=== PATIENT | female | born 1980 | race Caucasian/White ===

== ENCOUNTER 2024-05-12 18:45 | Emergency (ER) | payer OTHER, SELFPAY ==
[2024-05-12 18:53] VITALS: BP 150/98; PULSE 98; TEMP 36.9; O2SAT 100; BMI 26.6
--- NOTE | 2024-05-12 19:10 | ECG_ITS ---
The [facility] Test Date: 2024-05-12 Pat Name: ARACELY VELASQUEZ Department: Room: - Gender: Female Branch Operations Coordinator: : 1980 Requested By: [id number] Order Number: [id number] Reading MD: MELISA VILLALOBOS Measurements Intervals [place] Rate: 94 P: 61 PA: 158 QRS: 74 QRSD: 88 T: 60 QT: 338 QTc: 389 Interpretive Statements 1100 Sinus rhythm 9110 normal ECG Electronically Signed On 05-12-2024 20:47:33 EST by MELISA VILLALOBOS
--- NOTE | 2024-05-12 19:10 | XR_ITS ---
The [address] [address] Patient Name: ARACELY VELASQUEZ MRN: [id number] date: 1980 Sex: F Assigned Patient Location: ER Current Patient Location: ED.MAIN Accession/Order Number: [id number] Exam Date: 05/12/2024 19:23 Report Date: 05/12/2024 20:28 At the request of: SHRUTHI BENDER Procedure: XR chest 2V EXAM: XR chest 2V HISTORY: shortness of breath COMPARISON: None. TECHNIQUE: PA and lateral views of the chest FINDINGS: There is no focal airspace consolidation. The cardiomediastinal silhouette is not enlarged. No evidence of pleural effusion or pneumothorax are identified. No acute osseous abnormality. XR/XR chest 2V IMPRESSION: No acute cardiopulmonary process. Recommend follow up imaging if symptoms worsen or persist. Electronically authenticated by: RALPH UNLU Date: 05/12/2024 20:28
--- NOTE | 2024-05-12 19:54 | ED.GENADUL1 ---
HPI HPI - General Adult General Chief complaint: Shortness of Breath/Dyspnea Stated complaint: SOB, SWELLING Time Seen by Provider: 05/12/24 19:07 Source: patient Mode of arrival: walk-in Limitations: no limitations History of Present Illness HPI narrative: 43-year-old female to the emergency department with chief complaint of swelling in her upper and lower extremities. She reports it has been ongoing for almost a year. She also reports some mild shortness of breath. She has not been seen for this before. She reports that she did see a plywood matcher a few months ago and was told she had some nodules on her lung but this was never worked up further as she failed to follow-up. She denies any cough, fever, sweats, chills. No chest pain. No exertional nature to the symptoms. Related Data Home Medications ?Medication ?Instructions ?Recorded ?Confirmed buprenorphine 8 mg-naloxone 2 mg film 05/12/24 sublingual film buprenorphine 8 mg-naloxone 2 mg 3 film sublingual DAILY 05/12/24 05/12/24 sublingual film (Suboxone) gabapentin 800 mg tablet mg 05/12/24 Previous Rx's ?Medication ?Instructions ?Recorded furosemide 40 mg tablet (Lasix) 40 mg PO DAILY 3 days #3 tabs 05/12/24 Allergies Allergy/AdvReac Type Severity Reaction Status Date / Time No Known Drug Allergies Allergy Verified 05/12/24 18:57 Opioid HPI Opioid Management Most Recent Opioid Data: No Data to Display Review of Systems ROS Status of ROS 10 or more systems reviewed and unremarkable except as noted in history and below PFSH PFSH Social History Little interest or pleasure in doing things: not at all Feeling down, depressed, or hopeless: not at all Exam Narrative Exam Narrative: VITALS: I have reviewed the triage vital signs. GENERAL: Well developed, well appearing adult in no acute distress. NEURO: Alert and oriented. Moves all extremities. Face is symmetric and expressive. EYES: PERRL. No scleral icterus or conjunctival injection. No discharge. HENT: Normocephalic, atraumatic. Hearing is grossly intact. Nares grossly patent and without discharge. Mucous membranes moist. NECK: No JVD. Patient moves neck without restriction. CARDIO: Rhythm regular. Normal rate. No murmur, rub, or gallop. Pulses equal bilaterally in the upper and lower extremity. +1 lower extremity edema. PULM: Lungs clear to auscultation in all [place]. No wheezes, rales, or rhonchi. No conversational dyspnea. No splinting, stridor, or accessory muscle use. GI/: Abdomen is soft and non-tender. Normoactive bowel sounds. EXTREMITIES: Symmetric muscle bulk. No joint swelling. No clubbing, cyanosis, or deformity. SKIN: Warm and dry. Normal turgor. No rash or lesions appreciated. PSYCH: Mood, affect, and interaction is appropriate to the setting. Constitutional Vital Signs, click to edit/add: Last Vital Signs Temp 98.4 F 05/12/24 18:53 Pulse 98 H 05/12/24 18:53 Resp 24 H 05/12/24 18:53 BP 150/98 H 05/12/24 18:53 Pulse Ox 100 05/12/24 18:53 O2 Del Method Room Air 05/12/24 18:53 Course Vital Signs Vital signs: Vital Signs Temperature 98.4 F 05/12/24 18:53 Pulse Rate 98 H 05/12/24 18:53 Respiratory Rate 24 H 05/12/24 18:53 Blood Pressure 150/98 H 05/12/24 18:53 Pulse Oximetry 100 05/12/24 18:53 Oxygen Delivery Method Room Air 05/12/24 18:53 Temperature 98.4 F 05/12/24 18:53 Pulse Rate 98 H 05/12/24 18:53 Respiratory Rate 24 H 05/12/24 18:53 Blood Pressure 150/98 H 05/12/24 18:53 Pulse Oximetry 100 05/12/24 18:53 Oxygen Delivery Method Room Air 05/12/24 18:53 Medical Decision Making [facility] Narrative Medical decision making narrative: 43-year-old female with history of drug abuse to the emergency department chief complaint of extremity swelling. Vital stable, the patient is afebrile. She does have some trace edema to the hands and legs. Basic labs ordered. BNP, troponin, EKG, chest x-ray. Patient agrees with this plan. CBC and chemistry are unremarkable. Her troponin and BNP are both within normal limits. Chest x-ray is without acute findings. Discussed findings with the patient. I believe this likely represents a chronic lymphedema. She is given a referral to cardiology for further evaluation and echo. Will do a 3-day trial of Lasix to see if this improves her swelling. She will follow-up with her PCP. Return precautions were discussed. All questions were answered. The patient was discharged home. Medical Records Medical records reviewed: Yes I reviewed the patient's medical records Lab Data Lab results reviewed: Yes I reviewed the patient's lab results Labs: Lab Results 05/12/24 05/12/24 Range/Units 19:45 20:10 WBC 11.9 H (4.0-11.0) 10^3/uL RBC 4.74 (4.20-5.40) 10^6/uL Hgb 13.7 (12.0-16.0) g/dL Hct 41.8 (36.0-48.0) % MCV 88.2 (81.0-99.0) fL MCH 28.9 (26.7-34.0) pg MCHC 32.8 (29.9-35.2) g/dL RDW 12.9 (11.0-15.0) % Plt Count 336 (150-450) 10^3/uL MPV 10.4 (9.5-13.5) fL Neut % (Auto) 69.3 (43.0-75.0) % Lymph % (Auto) 19.4 L (20.5-60.0) % [place] % (Auto) 7.9 (1.7-12.0) % Eos % (Auto) 2.1 (0.9-7.0) % Baso % (Auto) 0.7 (0.2-2.0) % Neut # (Auto) 8.2 H (1.4-6.5) 10^3/uL Lymph # (Auto) 2.3 (1.2-3.8) 10^3/uL [place] # (Auto) 0.9 H (0.3-0.8) 10^3/uL Eos # (Auto) 0.3 (0.0-0.7) 10^3/uL Baso # (Auto) 0.1 (0.0-0.1) 10^3/uL Abs Immat Gran (auto) 0.07 H (0.00-0.03) 10^3/uL Imm/Tot Granulo (auto) 0.6 H (0.0-0.5) % Sodium 137 (136-145) mmol/L Potassium 4.2 (3.5-5.1) mmol/L Chloride 104 (98-107) mmol/L Carbon Dioxide 25.7 (21.0-32.0) mmol/L Anion Gap 11.5 BUN 10.0 (7.0-18.0) mg/dL Creatinine 0.92 (0.55-1.02) mg/dL Est GFR ( Amer) >60 (>=60 mL/min/1.73m^2) Est GFR (Non-Af Amer) >60 (>=60 mL/min/1.73m^2) BUN/Creatinine Ratio 10.9 Glucose 80 (74-106) mg/dL Calcium 8.4 L (8.5-10.1) mg/dL Troponin I High Sens 5.3 (4.0-51.3) pg/mL NT-Pro-B Natriuret Pep 25.0 (<=450.0) pg/mL Imaging Data Chest x-ray: Attestation: I have reviewed the pertinent imaging results. Radiologist's impression: ITS Impressions Chest X-Ray 05/12/24 19:10 IMPRESSION: No acute cardiopulmonary process. Recommend follow up imaging if symptoms worsen or persist. Electronically authenticated by: RALPH UNLU Date: 05/12/2024 20:28 ECG Data Attestation: I personally reviewed and interpreted this ECG as follows: (Normal sinus rhythm at a rate of 94. No STEMI. Normal QTc.) Discharge Plan Discharge Chief Complaint: Shortness of Breath/Dyspnea Clinical Impression: Lymphedema Patient Disposition: Home, Self-Care Time of Disposition Decision: 20:36 Condition: Good Mode of Transportation: Private Vehicle Prescriptions / Home Meds: New furosemide [Lasix] 40 mg tablet 40 mg PO DAILY 3 Days Qty: 3 0RF No Action gabapentin 800 mg tablet buprenorphine-naloxone 8-2 mg film buprenorphine-naloxone [Suboxone] 8-2 mg film 3 film sublingual DAILY Rx Instructions: use only 2 strips/tabs in mouth at one time, 1 under (each) side of tongue Print Language: Serbian Instructions: Lymphedema (ED) Additional Instructions: Call the office of your primary care doctor to arrange for follow-up within the above-stated timeframe. Your ED visit was focused on your acute issue and does not replace primary care. You should review your labs, imaging, and diagnoses from this ED visit with your primary care physician. There may be non-emergent/ incidental findings that need further evaluation. You should review your vital signs including blood pressure with your PCP. If you were prescribed medications you should discuss possible side-effects and drug interactions with your pharmacist. Call 911 or go to the nearest Emergency Department if you develop any new or worsening symptoms. Referrals: Physician,Non-Staff, [Primary Care Provider] - 1 week FAMILIA GRAHAM MD [Physician] - 1 week
[2024-05-12 20:13] LABS: Basophils Absolute Auto 0.1 10^3/uL (0.0-0.1); Basophils Percent Auto 0.7 % (0.2-2.0); Eosinophils Absolute Auto 0.3 10^3/uL (0.0-0.7); Eosinophils Percent Auto 2.1 % (0.9-7.0); Hematocrit 41.8 % (36.0-48.0); Hemoglobin 13.7 g/dL (12.0-16.0); Immature Granulocytes Abs Auto 0.07 10^3/uL (0.00-0.03); Immature Granulocytes Pct Auto 0.6 % (0.0-0.5); Lymphocytes Absolute Auto 2.3 10^3/uL (1.2-3.8); Lymphocytes Percent Auto 19.4 % (20.5-60.0); Mean Corpuscular HGB Conc 32.8 g/dL (29.9-35.2); Mean Corpuscular Hemoglobin 28.9 pg (26.7-34.0); Mean Corpuscular Volume 88.2 fL (81.0-99.0); Mean Platelet Volume 10.4 fL (9.5-13.5); Monocytes Absolute Auto 0.9 10^3/uL (0.3-0.8); Monocytes Percent Auto 7.9 % (1.7-12.0); Neutrophils Absolute Auto 8.2 10^3/uL (1.4-6.5); Neutrophils Percent Auto 69.3 % (43.0-75.0); Platelet Count 336 10^3/uL (150-450); Red Blood Count 4.74 10^6/uL (4.20-5.40); Red Cell Distribution Width 12.9 % (11.0-15.0); White Blood Count 11.9 10^3/uL (4.0-11.0)
[2024-05-12 20:15] LABS: Anion Gap 11.5; BUN Creatinine Ratio 10.9; Calcium 8.4 mg/dL (8.5-10.1); Carbon Dioxide 25.7 mmol/L (21.0-32.0); Chloride 104 mmol/L (98-107); Estimated GFR (African America >60 (>=60 mL/min/1.73m^2); Estimated GFR (Non-African Ame >60 (>=60 mL/min/1.73m^2); Glucose 80 mg/dL (74-106); Potassium 4.2 mmol/L (3.5-5.1); Sodium 137 mmol/L (136-145); Troponin I High Sensitivity 5.3 pg/mL (4.0-51.3)
== END 2024-05-12 20:57 | disposition home or self-care (01) ==
PROVIDERS: Emergency Provider Student in an Organized Health Care Education/Training Program
DX: I89.0 Lymphedema, not elsewhere classified (principal); F19.11 Other psychoactive substance abuse, in remission
CPT/HCPCS: 36415; 71046; 80048; 80076; 83880; 84484; 85025; 93005; 99285